=== PATIENT | female | born 2000 ===

== ENCOUNTER 2019-07-04 02:40 | Emergency (ER) | payer OTHER ==
[~2019-07-04] VITALS: Ht 170.2 cm; Wt 77.1 kg
[2019-07-04 02:54] VITALS: Ht 170.2 cm; Wt 77.1 kg
[2019-07-04 03:06] VITALS: BP 120/77
== END 2019-07-04 03:06 | disposition other institution (70) ==
LOC: ED 02:40
DX: Z02.89 Encounter for other administrative examinations (principal)